=== PATIENT | male | born 1995 | race Two or more races ===

== ENCOUNTER 2025-04-25 13:59 | Emergency (ER) | payer SELFPAY ==
[2025-04-25 14:03] VITALS: BP 150/81; PULSE 90; RESP 20; TEMP 36.7; O2SAT 95; BMI 34.4
--- NOTE | 2025-04-25 14:14 | PC.NURSE ---
Patient was at work when had ground level fall approx. 30 mins ago landing on right side shoulder/elbow/hand, c/o pain 7-06/09. Patient took 800 ibuprofen prior to arrival. Ice pack provided.
--- NOTE | 2025-04-25 14:31 | XR_ITS ---
Examination: Hand, right 3 views Technique: Hand AP, oblique, lateral 3 views Date and time of exam: April 25 thousand 25 1443 hours INDICATIONS: Injury to the hand today, hand pain. FINDINGS: Acute fracture third metacarpal shaft, 1.5 mm offset on the lateral view Carpal bones intact IMPRESSION: Acute fracture third metacarpal without significant displacement
--- NOTE | 2025-04-25 14:31 | XR_ITS ---
Examination: Forearm, right, 2 views. Technique: Forearm, AP, lateral 2 views Date and time of exam: April 25, 2025 at 1443 hours INDICATIONS: Injury to the forearm today, forearm pain. FINDINGS: No acute fracture On the lateral view the distal ulna is dorsally positioned No foreign body IMPRESSION: No acute fracture On the lateral view the distal ulna is dorsally positioned, clinical correlation advised
--- NOTE | 2025-04-25 14:31 | XR_ITS ---
Examination: Shoulder,right, 3 views Technique: Shoulder AP internal rotation, AP external rotation, Y view shoulder, 3 views Exam date and time :April 25, 2025, 1443 hours INDICATIONS: Injury to the shoulder today, shoulder pain. FINDINGS: Acute fracture humeral head to the greater tuberosity, no significant displacement No shoulder dislocation IMPRESSION: Acute fracture humeral head through the greater tuberosity without significant displacement
--- NOTE | 2025-04-25 14:31 | XR_ITS ---
Examination: Humerus 2 views right Technique: Humerus, AP lateral 2 views Date and time of exam: April 25, 2025, 1443 hours INDICATIONS: Injury to the arm today, arm pain. FINDINGS: Acute fracture humeral head to the greater tuberosity, no significant displacement Shaft of the humerus intact IMPRESSION: Acute fracture humeral head through the greater tuberosity
[2025-04-25] MEDS: HYDROcodone/APAP 7.5/325 TABLET 1 TAB PO (15:11)
[2025-04-25] MEDS: CYCLObenzaPRINE 5 MG TABLET PO (15:11)
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
== END 2025-04-25 17:05 | disposition home or self-care (01) ==
PROVIDERS: Emergency Provider Emergency Medicine
DX: S42.251A Displaced fracture of greater tuberosity of right humerus, initial encounter for closed fracture (principal); S62.322A Displaced fracture of shaft of third metacarpal bone, right hand, initial encounter for closed fracture; Y09 Assault by unspecified means
CPT/HCPCS: 29125; 73030; 73060; 73090; 73130; 99283; A9270